=== PATIENT | male | born 1975 | race African-American/Black ===

== ENCOUNTER 2018-08-30 02:29 | Emergency (ER) | payer BC, SELFPAY ==
[2018-08-30] MEDS ORDERED: Azithromycin 250 MG TAB ONE (03:07)
[2018-08-30] MEDS ORDERED: Lidocaine 1% (PF) 30 ML VIAL ONE (03:08)
[2018-08-30] MEDS ORDERED: cefTRIAXone\\ROCEPHIN 250 MG VIAL ONE (03:08)
[2018-08-30 03:19] LABS: Bilirubin Negative (Negative); Clarity Hazy (Clear); Glucose, Urine (Dipstick) Negative (Negative); Leukocyte Moderate (Negative); Nitrite Negative (Negative); Protein, Urine (Dipstick) Negative (Neg-Trace); Specific Gravity, Urine 1.025 (1.002-1.036); Urobilinogen 0.2 mg/dL (0.2-1.0)
[2018-08-30 03:20] LABS: Blood, Urine Trace (Negative)
[2018-08-30 03:30] LABS: Bacteria/HPF None Seen HPF (None Seen); Crystals/HPF None Seen HPF (Negative); Hyaline Casts/LPF NONE SEEN LPF (0-3 Hyaline); Other Casts/LPF None Seen LPF (0-3 Hyaline); Oval Fat Bodies/HPF None Seen HPF (None Seen); RBC/HPF 0-3 HPF (0-3); Renal Epithelial 0-3 HPF (0-3); Sperm/HPF None Seen HPF (None Seen); Squamous Epithelial 0-3 HPF (0-3); Transitional Epithelial 0-3 HPF (0-3); Trichomonas/HPF None Seen HPF (None Seen); Yeast-All Forms None Seen HPF (None Seen)
== END 2018-08-30 03:26 | disposition home or self-care (01) ==
LOC: ERS 02:29
DX: R36.9 Urethral discharge, unspecified (principal); R30.0 Dysuria; F17.210 Nicotine dependence, cigarettes, uncomplicated
CPT/HCPCS: 81003; 81015; 87491; 87591; 96372; J0696; J2001